=== PATIENT | female | born 1985 | race Caucasian/White ===

== ENCOUNTER 2017-10-22 17:02 | Emergency (ER) | payer SELFPAY ==
[2017-10-22] MEDS: ALPRAZolam 0.5 MG TABLET PO (17:37)
[2017-10-22] MEDS ORDERED: ALPRAZolam 1 MG TABLET PO (17:45)
[2017-10-22 17:58] LABS: URINE HCG POC HCG NEGATIVE (Negative)
== END 2017-10-22 18:53 | disposition home or self-care (01) ==
LOC: ER 18:53
DX: F41.9 Anxiety disorder, unspecified (principal); R07.89 Other chest pain
CPT/HCPCS: 71045; 81025; 93005; 99284

== ENCOUNTER → 2018-12-08 | Outpatient (CLI) | payer MEDICAID ==
[2017-10-22 17:05] VITALS: BP 133/83
[~2018-12-08] MED LIST: ALPR0.5T PO; FLUO20CA16 PO; FLUT9.9S NS; L.AC1CAP6 PO; LEVO112T4 PO
--- NOTE | 2018-12-08 13:49 | EKG ---
[facility] [address] [place] [address] Test Date: 2018-12-08 Test Time: 13:53:33 Pat Name: EMELI ESPITIA Department: Room: Gender: F Package Liner: : 1985 Requested By: KARLA BRAR Order Number: [id number] Reading MD: Emil Humphreys MD Measurements Intervals [place] Rate: 52 P: 0 KS: 134 QRS: 66 QRSD: 86 T: 49 QT: 400 QTc: 374 Interpretive Statements SINUS RHYTHM Electronically Signed On 12-08-2018 16:22:53 CDT by Emil Humphreys MD
[2018-12-08 13:57] LABS: BASO # 0.1 x10^3/uL (0.0-0.2); BASO % 1 % (0-3); EOS # 0.2 x10^3/uL (0.0-0.7); EOS % 2 % (0-3); HEMATOCRIT 41.8 % (36.0-47.0); HEMOGLOBIN 14.6 g/dL (12.0-15.5); LYMPH % 20 % (24-48); MEAN CORPUSCULAR HEMOGLOBIN 32 pg (25-35); MEAN CORPUSCULAR HGB CONC 35 g/dL (31-37); MEAN CORPUSCULAR VOLUME 93 fL (79-100); MONO # 0.7 x10^3/uL (0.0-1.1); MONO % 7 % (0-9); NEUT # 6.9 x10^3/uL (1.8-7.7); NEUT % 70 % (31-73); PLATELET COUNT 210 x10^3/uL (140-400); RED BLOOD COUNT 4.51 x10^6/uL (3.50-5.40); RED CELL DISTRIBUTION WIDTH 12.8 % (11.5-14.5); WHITE BLOOD COUNT 9.8 x10^3/uL (4.0-11.0)
[2018-12-08 14:12] LABS: BILIRUBIN,URINE NEGATIVE (NEG); CLARITY,URINE CLEAR; COLOR,URINE YELLOW; NITRITE,URINE NEGATIVE (NEG); PROTEIN,URINE NEGATIVE (NEG-TRACE); UROBILINOGEN,URINE 0.2 mg/dL (0.2 mg/dL)
[2018-12-08 14:20] LABS: ALBUMIN 3.4 g/dL (3.4-5.0); CREATININE 0.8 mg/dL (0.6-1.0); GFR 83.7; POTASSIUM 4.4 mmol/L (3.5-5.1); TOTAL BILIRUBIN 0.6 mg/dL (0.2-1.0); TOTAL PROTEIN 6.9 g/dL (6.4-8.2)
--- NOTE | 2018-12-08 14:22 | RAD ---
PROCEDURE: CHEST PA LATERAL CLINICAL INDICATION: Preop chest x-ray for hysterectomy. COMPARISON: None FINDINGS: No pneumothorax identified. Cardiac and mediastinal contours unremarkable. No pulmonary consolidation or acute airspace disease. No acute osseous abnormalities identified. IMPRESSION: No pulmonary consolidation or acute airspace disease. Electronically signed by: Felix Chanel DO (12/08/2018 2:19 PM) [facility]
[2018-12-08 14:24] LABS: BACTERIA,URINE 0 /HPF (0-FEW); RBC,URINE OCC /HPF (0-2); SQUAMOUS EPITHELIAL CELL,UR FEW /LPF; WBC,URINE OCC /HPF (0-4)
== END | disposition home or self-care (01) ==
LOC: SURGPAT 12:40
PROVIDERS: ATTEND Obstetrics & Gynecology
DX: Z01.818 Encounter for other preprocedural examination (principal); I26.99 Other pulmonary embolism without acute cor pulmonale; E03.9 Hypothyroidism, unspecified; R10.2 Pelvic and perineal pain; Z90.710 Acquired absence of both cervix and uterus
CPT/HCPCS: 36415; 71046; 80053; 81001; 85025; 93005

== ENCOUNTER 2018-12-21 06:32 | Observation (INO) | payer MEDICAID ==
[~2018-12-21] VITALS: Ht 160 cm; Wt 87.0 kg
[2018-12-21] VITALS (9 sets, daily range): BP systolic 81–132; BP diastolic 39–95
[~2018-12-21 06:32] MED LIST changes: +BUPIVACAINE-EPI 0.25%-1:200000 MPF 30 ML VIAL. INJ ONE
[2018-12-21] MEDS ORDERED: ONDANSETRON PF 4 MG/2 ML VIAL. IV PRN ×2 (07:00→11:45)
[2018-12-21] MEDS ORDERED: PROCHLORPERAZINE 10 MG/2 ML VIAL. IV PRN (07:00)
[2018-12-21] MEDS ORDERED: LIDOCAINE 1% PF 2 ML VIAL. ID PRN (07:00)
[2018-12-21] MEDS ORDERED: HYDROmorphone 2 MG/ML VIAL IV PRN (07:00)
[2018-12-21] MEDS ORDERED: ENOXAPARIN 40 MG/0.4 ML SYRINGE. SQ ONE (07:00)
[2018-12-21] MEDS ORDERED: IV RINGERS,LACTATED 1000ML 1,000 ML IV SCH (07:00)
[2018-12-21] MEDS ORDERED: fentaNYL PF VIAL 100 MCG/2 ML VIAL IV PRN ×2 (07:00)
[2018-12-21] MEDS ORDERED: ROCURONIUM 50 MG/5 ML VIAL. ONE (07:12)
[2018-12-21] MEDS ORDERED: DEXAMETHASONE SOD PHOS 4 MG/ML VIAL ONE (07:12)
[2018-12-21] MEDS ORDERED: FAMOTIDINE 20 MG/2 ML VIAL ONE (07:12)
[2018-12-21] MEDS ORDERED: LIDOCAINE 2% PF 5 ML VIAL. ONE (07:12)
[2018-12-21] MEDS ORDERED: PROPOFOL 20 ML IV ONE (07:12)
[2018-12-21] MEDS ORDERED: ONDANSETRON PF 4 MG/2 ML VIAL. ONE ×2 (07:12→11:42)
[2018-12-21] MEDS ORDERED: MIDAZOLAM HCL/PF 2 MG/2 ML VIAL. ONE (07:12)
[2018-12-21] MEDS ORDERED: fentaNYL PF VIAL 100 MCG/2 ML VIAL ONE ×4 (07:12→11:47)
[2018-12-21] MEDS ORDERED: KETOROLAC 30 MG/ML INJ FOR OR. INJ ONE (07:15)
[2018-12-21] MEDS ORDERED: ESTROGENS, CONJ VAGINAL CREAM 30GM TUBE. ONE (07:55)
[2018-12-21] MEDS ORDERED: INDIGOTINDISULFONATE SODIUM 40 MG/5 ML AMPUL. ONE (07:56)
[2018-12-21] MEDS ORDERED: FLUoxetine HCL 20 MG CAPSULE PO SCH (08:00)
[2018-12-21] MEDS ORDERED: ePHEDrine PF IN SALINE 50 MG/10 ML SYRINGE. IV ONE (08:21)
[2018-12-21] MEDS ORDERED: GLYCOPYRROLATE 1 MG/5 ML VIAL. ONE (08:22)
[2018-12-21] MEDS ORDERED: LEVOTHYROXINE 112 MCG TABLET PO SCH (09:00)
[2018-12-21] MEDS ORDERED: FLUTICASONE 50MCG/NASAL SPRAY 16GM BOTTLE. NS SCH (09:00)
[2018-12-21] MEDS ORDERED: VECURONIUM BOLUS 10 MG VIAL. IV ONE (09:27)
[2018-12-21] MEDS ORDERED: 0.9 % SODIUM CHLORIDE 20 ML VIAL. IJ ONE (09:28)
[2018-12-21] MEDS ORDERED: NEOSTIGMINE METHYLSULFATE 5 MG/5 ML SYRINGE. ONE (09:58)
[2018-12-21] MEDS ORDERED: SEVOFLURANE > 120 MINUTES. IH ONE (09:58)
[2018-12-21] MEDS ORDERED: ceFAZolin 2GM PREMIX 2 GM/50 ML BAG IV ONE (10:00)
[2018-12-21] MEDS ORDERED: ZOLPIDEM 5 MG TABLET. PO PRN (11:45)
[2018-12-21] MEDS ORDERED: MORPHINE SULFATE 2 MG/ML VIAL. IV PRN (11:45)
[2018-12-21] MEDS ORDERED: NALOXONE 0.4 MG/ML VIAL. IV PRN (11:45)
[2018-12-21] MEDS ORDERED: CALCIUM CARBONATE 500 MG TAB.CHEW PO PRN (11:45)
[2018-12-21] MEDS ORDERED: diphenhydrAMINE 50 MG/ML VIAL IV PRN (11:45)
[2018-12-21] MEDS ORDERED: diphenhydrAMINE HCL 25 MG CAPSULE PO PRN (11:45)
[2018-12-21] MEDS ORDERED: LACTULOSE 20 GM/30 ML SOLUTION. PO PRN (11:45)
[2018-12-21] MEDS ORDERED: HYDROcodone/APAP 5/325MG 1 TAB TABLET PO PRN (11:45)
[2018-12-21] MEDS ORDERED: MAGNESIUM HYDROXIDE 2,400 MG/30 ML ORAL.SUSP. PO PRN (11:45)
[2018-12-21] MEDS ORDERED: 0.9 % SODIUM CHLORIDE 10 ML DISP.SYRIN. IV PRN (11:45)
[2018-12-21] MEDS ORDERED: PROCHLORPERAZINE 10 MG/2 ML VIAL. ONE (11:47)
--- NOTE | 2018-12-21 12:03 | PDOC ---
BRIEF OPERATIVE NOTE Date: Dec 21, 2018 Pre-Op Diagnosis pelvic pain, menorrhagia, irregular menses Post-Op Diagnosis same plus pelvic adhesive disease with uterus (whole uterus and bladder) stuck to anterior abdominal wall Procedure Performed LAVH/RSO/left salpingectomy/lysis of adhesions Surgeon Dr. Gypsy Martinez Jelly Filter Tender HENRIETTA Pizarro Anesthesiologist Dr. Mackenzie Anesthesia Type: General Blood Loss 150cc IV Fluid 2500cc Urine Output 650cc clear via thomas Specimens Obtained cervix, uterus, right tube and ovary, left tube (detached) Findings small uterus, normal bilateral tubes and ovaries, omentum and entire anterior uterus with bladder adhesed to anterior abdominal wall Complications none Operative Note [id number] GYPSY MARTINEZ MD Dec 21, 2018 12:03
[2018-12-21] MEDS ORDERED: MORPHINE SULFATE 2 MG/ML VIAL. ONE ×2 (12:17→12:38)
[2018-12-21] MEDS: MORPHINE SULFATE 2 MG/ML VIAL. IV PRN ×4 (12:20→12:57)
--- NOTE | 2018-12-21 13:38 | OP ---
DATE OF SURGERY: 12/21/2018 PREOPERATIVE DIAGNOSES: Irregular menses, menorrhagia, pelvic pain. 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 PROCEDURE: Laparoscopic-assisted vaginal hysterectomy, right salpingo-oophorectomy, left salpingectomy, and lysis of adhesions. SURGEON: Karla Martinez MD CHAINSTITCH SEWING MACHINE OPERATOR: HENRIETTA Dodd ANESTHESIOLOGIST: Sonu Mackenzie MD ANESTHESIA: General. ESTIMATED BLOOD LOSS: 150 mL. URINE OUTPUT: 650 mL clear via Davis catheter. INTRAVENOUS FLUIDS: 2500 mL of Crystalloid. SPECIMENS: Cervix, uterus, right tube and ovary and a left detached tube. FINDINGS: She did have a small uterus with normal tubes and ovaries, but her uterus was adhesed to the anterior abdominal wall with omental adhesions in front of it, from the fundus all the way down was adhesed with bladder adhesions to the uterus, uterus to the anterior abdominal wall. COMPLICATIONS: None, but I will say at least over 2-2-1/2 hours of adhesions were done carefully to take this uterus off the anterior abdominal wall before I could actually complete the hysterectomy. DESCRIPTION OF PROCEDURE: This patient was taken to the operating room where general anesthesia was placed. The patient was placed in a dorsal lithotomy position in [facility]. The patient's abdomen and vagina were both prepped and draped in the normal sterile fashion and a Davis catheter had been inserted under sterile technique. Upon my arrival, a timeout was performed. Once everyone agreed and she had received her preoperative antibiotics, a weighted speculum was placed in the patient's vagina. A single-tooth tenaculum was used to grasp her cervix. It was a very small nulliparous appearing cervix from her 3 prior cesareans. Marcaine 10 mL of 0.25% with epinephrine were used to circumferentially inject around the cervix for both hemodissection and hemostatic purposes later. The Cimetrix uterine manipulator was placed through the endocervical os, locked on the single tooth tenaculum and the bivalve speculum was then weighted. Top gloves were discarded and changed. Attention was then turned to the abdomen. It did feel like her uterus with the manipulator in could be moved half way up the abdominal wall or was located higher than what the sonogram showed a 7-8 cm uterus, so it appeared to be bigger, so I went above the umbilicus, I made a supraumbilical skin incision with the scalpel, carried down through the subcuticular layer to the fascia with curved Lucy. The 5 mm Visiport was used directly into the abdominal cavity. Opening patient pressure was 4 mmHg. Carbon dioxide gas was used to then appropriately insufflate the abdominal cavity to maintain a pressure of 15 mmHg. The patient was then placed in Trendelenburg position where omental adhesions could be seen right away, but I could not see around them, so I did place a right and left lower quadrant ports under direct visualization. Laterally it was clear, so finding an area clear of any vasculature after transilluminating the abdominal wall, making a small incision and placing the 5 mm atraumatic disposable trocar in under direct visualization, then using 4-5 mL of air to insufflate that cuff. I moved the camera over to one of the lateral ports, looked at the midline port, it was clear and inflated that cuff as well. At this point, once we got in there, we could see that the uterus was indeed small, but the reason it felt higher is it was adhesed all the way up the anterior abdominal wall with omental adhesions in front of it, so I put the LigaSure in and took down all the omental adhesions. The uterine adhesion at the front was very thick. I was actually able to look at the tubes and ovaries on both sides which were normal and start with the right tube and ovary. The patient wanted the right side out, so I elevated the right tube and ovary, found the ureter coursing low in the pelvis and I was able to stay high on the infundibulopelvic ligament on the right side, cauterizing and cutting and taking this down. I was able to pull down from that anterior adhesion of the uterus off the abdominal wall and find the round ligament and cauterized it as well, trying to get blood supply to the uterus. At this point, the left tube and ovary were normal. I went above the ovary and below the tube on this side doing a salpingectomy and crossing the left uterine ovarian pedicle, leaving the ovary per patient request on this side and again cauterizing the left round ligament. On the left side, I was actually able to peel down and somewhat get that bladder down on the side and even start to get my uterines on the left side even though there were adhesions in the middle. So, I went on the right side and worked and did the same thing. I was able to kind of start low and I was able to actually peel down the bladder. It was fatty and filmy, but I was able to peel it down and separate it from that thick anterior fundal adhesion and get the bladder down and get the uterines on the right side as well. This allowed me to use the monopolar hook on that thick adhesion on the fundal area and release it and then I was able to put a single tooth tenaculum down the other port, pull it down and manipulate the uterus better to take down the adhesions under direct visualization. Some were done bluntly just using the [place] to roll up and kind of come in from the sides and others were done sharply with the monopolar tip where I could see and kind of score that bladder and peel it down on the sides and get it down in the front and then come around that thick anterior abdominal wall to the uterus adhesion with the monopolar hook once I knew the bladder was down around it. It took over 2 hours to get the uterus and bladder released and get the bladder down. Once it was down, I was able to then easily get my uterines, cross contralaterally on either side, going down the uterus through the cardinal and broad ligaments, to the uterosacrals bilaterally and there was nothing posteriorly, no adhesions posteriorly and again, like I said, the ovaries were good. The left tube did detach during this, it was easily removed and passed off. That is why it was detached, but everything else was good and there was no active bleeding. Most of the surgery was spent on adhesiolysis. Once everything was down and the bladder was down, and we got down low on both sides to the uterosacrals on both sides and it was completely free and blanched, all instruments were removed from the abdomen and attention was turned vaginally. The single tooth and Valtchevs were removed. A weighted speculum was placed in the patient's vagina. Thyroid Tigre clamps were placed on the anterior and posterior lips of the cervix respectively. A scalpel was used to make a circumferential incision in the cervix. An open Ray-Mya 4 x 4 was used to gently push up the anterior bladder peritoneum. The posterior cul-de-sac was sharply entered with curved Espinoza scissors and a #0 Vicryl stitch was used to secure the posterior peritoneum to the vaginal cuff. It was tagged with a curved Lucy clamp and the needle was cut and passed off. The short weighted vaginal speculum was removed and replaced with the long weighted Georges speculum in the posterior cul-de-sac. Once the bladder was up on both sides and I made sure it was, curved Анна clamps x 2 were placed on the patient's left uterosacral ligament where they were doubly clamped with curved Heaneys, cut with Espinoza scissors and suture ligated x 2 with 0 Vicryl. There was a sliver of a pedicle left on this side that the right angle got around and the vaginal LigaSure cauterized and cut it easily, so the left side was free. At this point, the right side, curved Heaneys were placed on the right uterosacral ligament where they were doubly clamped with curved Heaneys, cut with curved Espinoza scissors and suture ligated x 2 with 0 Vicryl. Second one was taken through the vaginal cuff securing uterosacral ligament to the vaginal cuff, tagging it with a straight Lucy clamp. The remaining pedicle, it was larger on this side, but it was easily delineated and the vaginal LigaSure was used to cauterize and cut the remaining pedicle on the right side as well. There was still an anterior adhesion that I could get from the fundus down and peel it off with my finger at this point. Where there was some fatty and still a small adhesion to the anterior low abdominal wall near the bladder area and I did not do that, laparoscopically I got 90% of the adhesions, but this last one remained, but I could easily get to it now, kind of turning the uterus inside out, inverting it and peeling that last adhesion off bluntly with my fingers. Once this was done, the cervix, uterus, right tube and ovary were delivered in total and again the left one had been detached during the manipulation earlier with the salpingectomy and it was passed off, but it was removed as well. So, the patient kept her left ovary. At this point, I could not find the anterior bladder mucosa with all that scarring, so I just used the sponge stick to examine the pedicles. There was some slight bleeding from the left uterosacral ligament. I was able to pull it out with a Malawian's and cauterize behind it with the vaginal LigaSure easily under direct visualization. Sponge stick was used to examine the pedicles, they appeared dry. So, the anterior Ray-Mya was taken out of the cul-de-sac. The short weighted speculum was replaced. The long Georges speculum was removed and replaced with a short weighted vaginal speculum. A 2-0 Vicryl was taken just under the cuff as I could not find the anterior bladder mucosa, the left uterosacral ligament, posterior peritoneum and right uterosacral ligament, thus closing the peritoneum in a pursestring like fashion. The right uterosacral tag was clipped. All that was left was that posterior cuff tag and the vaginal cuff was closed with a full length 2-0 Vicryl in an anterior to posterior running locked fashion with a full length 2-0 Vicryl. A few imbricating stitches were placed as well with excellent results. The cuff was hemostatic. All gloves were discarded and changed and a second look was now taken from above. After changing all gloves and going back above and reinsufflating, placing her back in Trendelenburg position, copious irrigation initially revealed hemostasis; however, I saw a tiny bit of spotting over at the right IP area, so I pulled it out and cauterized it. It looked great. However, the LigaSure kept sticking to it and everytime I pulled it off, it would rebleed, so I cauterized it, sprayed it with the suction dependency director, got it off and then initially we tried to use Tisseel; however, it did not squirt right, it did come out at all, so we just abandoned that and got Ewa and sprayed it with excellent results and we watched it several times. I sprayed the anterior abdominal wall, the bladder area, the vaginal cuff, looked back over at the right side, deflated some of the gas and the air and it stayed dry. The right and left pericolic gutters were clear. The right upper quadrant looked good. She did have bowel adhesions on both sides, right and left-sided that I did not touch at all; they were above the level of the pelvis. There was some evidence of scarring, but again I left those and did not touch those. The syringe was used to deflate all 3 of the trocar, 4-5 mL of air in the trocar cuff. As hemostasis was assured and I watched the Ewa stay white and powdery and nothing was draining and the cul-de-sac was dry again, after deflating the air and watching it for several minutes, the right and left lower quadrant ports were removed under direct visualization. These too were hemostatic. Gas was released from that umbilical port and then it was pulled out as well. All three port sites were closed with 4-0 nylon and the patient is being awakened from anesthesia right now. She was awakened and brought to the recovery room in stable condition. KARLA MARTINEZ MD DR: COURTNEY/larissa JOB#: [id number] / [id number]
[2018-12-21] MEDS ORDERED: TIMOLOL 0.5% OPHTH SOLUTION 5ML BOTTLE. OS SCH (15:15)
--- NOTE | 2018-12-21 16:16 | NUR ---
1330 eye discomfort upon assessment patient c/o of eye hurting, states that it feels like something is in it. Eye was looked at multiple times by RN nothing was noted in eye. around 1430 Anesthesia was notified, orders received. Anesthesia up to unit to see patient. Patient and mother of patient was notified of possible corneal abrasion.
[2018-12-21] MEDS: SIMETHICONE 80 MG TAB.CHEW PO PRN ×2 (17:59→22:08)
[2018-12-21] MEDS: oxyCODONE/APAP 5/325 1 TAB TABLET PO PRN ×3 (18:01→23:06)
[2018-12-21] MEDS ORDERED: TIMOLOL 0.5% OPHTH SOLUTION 5ML BOTTLE. OS PRN (18:15)
[2018-12-21] MEDS ORDERED: POLYVINYL ALCOHOL 1.4% OPHTH SOLUTION 15ML BOTTLE. OU PRN (20:00)
--- NOTE | 2018-12-21 21:20 | NUR ---
Dr. Martinez called and notified of saturated dressing from L abd incision. Orders received for stat CBC and to return call with results. 2150- Pt. up to the bathroom and pulled call light. This nurse and charge nurse to room. Pt. stated her dressing was saturated again with serosanguineous fluid. Charge nurse helped pt. to bed and redressed incision. This nurse called Dr. Martinez and notified her of saturated dressing and H&H results. Dr. Martinez stated that she would see pt. first thing in the morning and to redress as needed as long as pt. stable.
[2018-12-21 21:38] LABS: BASO # 0.1 x10^3/uL (0.0-0.2); BASO % 1 % (0-3); EOS % 0 % (0-3); HEMATOCRIT 37.9 % (36.0-47.0); HEMOGLOBIN 12.9 g/dL (12.0-15.5); LYMPH # 1.1 x10^3/uL (1.0-4.8); LYMPH % 8 % (24-48); MEAN CORPUSCULAR HEMOGLOBIN 32 pg (25-35); MEAN CORPUSCULAR HGB CONC 34 g/dL (31-37); MEAN CORPUSCULAR VOLUME 93 fL (79-100); MONO # 0.7 x10^3/uL (0.0-1.1); MONO % 5 % (0-9); NEUT % 86 % (31-73); PLATELET COUNT 222 x10^3/uL (140-400); RED BLOOD COUNT 4.06 x10^6/uL (3.50-5.40); RED CELL DISTRIBUTION WIDTH 12.8 % (11.5-14.5); WHITE BLOOD COUNT 12.8 x10^3/uL (4.0-11.0)
[2018-12-21 21:57] LABS: % BANDS 3 % (0-9); % BASOS 1 % (0-3); % LYMPHS 14 % (24-48); % MONOS 2 % (0-10); % SEGS 80 % (35-66); PLT ESTIMATE ADEQUATE (ADEQUATE); TOXIC GRANULATION SLIGHT
[2018-12-22 01:30] VITALS: BP 128/77
[2018-12-22] MEDS: oxyCODONE/APAP 5/325 1 TAB TABLET PO PRN ×4 (03:23→17:22)
[2018-12-22 05:10] VITALS: BP 107/61
[2018-12-22] MEDS ORDERED: LIDOCAINE 1% Multi-Dose 20 ML VIAL. INJ ONE (07:30)
--- NOTE | 2018-12-22 07:49 | PDOC ---
SURGICAL PROGRESS NOTE Subjective Doing well. Had some serosanguous drainage from Left lower quadrant port yesterday. Much better this morning. No n/v, tolerating PO, ambulating well and voiding without catheter. Has already had a loose stool also today. No vag bleeding at all Vital Signs Vital Signs Date Time Temp Pulse Resp B/P (MAP) Pulse Ox O2 Delivery O2 Flow Rate FiO2 12/22/18 05:10 99.1 71 16 107/61 (76) 97 Room Air 99.1 I&O Intake and Output 12/22/18 06:59 Intake Total 3850 ml Output Total 800 ml Balance 3050 ml Intake Oral 500 ml IV Total 3350 ml Output Urine Total 650 ml Estimated Blood Loss 150 ml # Voids 3 PATIENT HAS A ALEXANDRE: No General: Alert, Oriented X3, Cooperative, No acute distress HEENT: Atraumatic Heart: Regular rate Abdomen: Soft, No tenderness (mild discomfort with gas only), Other (edge of umbilical and Left port site with oozing if i press and squeeze; used a total of 4cc of 1% lidocaine to numb it and placed one 4-0 nylon suture at edge on both of them at the bedside with excellent results (but bandage was dry this am when I removed it but was changed a few times yesterday by the nurses)) Extremities: No clubbing, No cyanosis, No edema, No tenderness/swelling Skin: No rashes Neuro: Normal gait, Normal speech Psych/Mental Status: Mental status NL, Mood NL Labs Laboratory Tests Test 12/21/18 06:48 12/21/18 21:21 Bedside Urine HCG, Qualitative Hcg negative (Negative) White Blood Count 12.8 x10^3/uL (4.0-11.0) Red Blood Count 4.06 x10^6/uL (3.50-5.40) Hemoglobin 12.9 g/dL (12.0-15.5) Hematocrit 37.9 % (36.0-47.0) Mean Corpuscular Volume 93 fL (79-100) Mean Corpuscular Hemoglobin 32 pg (25-35) Mean Corpuscular Hemoglobin Concent 34 g/dL (31-37) Red Cell Distribution Width 12.8 % (11.5-14.5) Platelet Count 222 x10^3/uL (140-400) Neutrophils (%) (Auto) 86 % (31-73) Lymphocytes (%) (Auto) 8 % (24-48) Monocytes (%) (Auto) 5 % (0-9) Eosinophils (%) (Auto) 0 % (0-3) Basophils (%) (Auto) 1 % (0-3) Neutrophils # (Auto) 11.0 x10^3/uL (1.8-7.7) Lymphocytes # (Auto) 1.1 x10^3/uL (1.0-4.8) Monocytes # (Auto) 0.7 x10^3/uL (0.0-1.1) Eosinophils # (Auto) 0.0 x10^3/uL (0.0-0.7) Basophils # (Auto) 0.1 x10^3/uL (0.0-0.2) Segmented Neutrophils % 80 % (35-66) Band Neutrophils % 3 % (0-9) Lymphocytes % 14 % (24-48) Monocytes % 2 % (0-10) Basophils % 1 % (0-3) Toxic Granulation Slight Platelet Estimate Adequate (ADEQUATE) Laboratory Tests Test 12/21/18 21:21 White Blood Count 12.8 x10^3/uL (4.0-11.0) Red Blood Count 4.06 x10^6/uL (3.50-5.40) Hemoglobin 12.9 g/dL (12.0-15.5) Hematocrit 37.9 % (36.0-47.0) Mean Corpuscular Volume 93 fL (79-100) Mean Corpuscular Hemoglobin 32 pg (25-35) Mean Corpuscular Hemoglobin Concent 34 g/dL (31-37) Red Cell Distribution Width 12.8 % (11.5-14.5) Platelet Count 222 x10^3/uL (140-400) Neutrophils (%) (Auto) 86 % (31-73) Lymphocytes (%) (Auto) 8 % (24-48) Monocytes (%) (Auto) 5 % (0-9) Eosinophils (%) (Auto) 0 % (0-3) Basophils (%) (Auto) 1 % (0-3) Neutrophils # (Auto) 11.0 x10^3/uL (1.8-7.7) Lymphocytes # (Auto) 1.1 x10^3/uL (1.0-4.8) Monocytes # (Auto) 0.7 x10^3/uL (0.0-1.1) Eosinophils # (Auto) 0.0 x10^3/uL (0.0-0.7) Basophils # (Auto) 0.1 x10^3/uL (0.0-0.2) Segmented Neutrophils % 80 % (35-66) Band Neutrophils % 3 % (0-9) Lymphocytes % 14 % (24-48) Monocytes % 2 % (0-10) Basophils % 1 % (0-3) Toxic Granulation Slight Platelet Estimate Adequate (ADEQUATE) I have reviewed the following labs, vitals, nursing Cardiovascular: No pertinent hx Pulmonary: Asthma GI: No pertinent hx Heme/Onc: Anemia NOS Assessment/Plan POD#1 s/p LAVH/RSO/left salpingectomy/adhesiolysis Routine PO care d/c to home later today if am bloodwork is ok (not even drawn yet at 0745am had nurses call lab) NPV x 6 weeks no driving on narcotic pain meds or for 1-2 weeks keep f/u with me in office in one week pt has narcotic pain med filled at home ok for OTC ibuprofen as needed also call or return sooner for any other questions or concerns not limited to but including pain unrelieved with pain meds, increased or unexplained vaginal bleeding or T>100.4 KARLA BRAR MD Dec 22, 2018 07:49
[2018-12-22] MEDS: SIMETHICONE 80 MG TAB.CHEW PO PRN (07:54)
--- NOTE | 2018-12-22 07:54 | PDOC3 ---
Discharge Summary Visit Information Date of Admission: Dec 21, 2018 Date of Discharge: Dec 22, 2018 Final Diagnosis pelvic pain with pelvic adhesive disease Brief Hospital Course Allergies Allergies Coded Allergies Type Severity Reaction Last Updated Verified No Known Drug Allergies 12/21/18 No Vital Signs Vital Signs Date Time Temp Pulse Resp B/P (MAP) Pulse Ox O2 Delivery O2 Flow Rate FiO2 12/22/18 05:10 99.1 71 16 107/61 (76) 97 Room Air 99.1 Lab Results Laboratory Tests Test 12/21/18 06:48 12/21/18 21:21 Bedside Urine HCG, Qualitative Hcg negative (Negative) White Blood Count 12.8 x10^3/uL (4.0-11.0) Red Blood Count 4.06 x10^6/uL (3.50-5.40) Hemoglobin 12.9 g/dL (12.0-15.5) Hematocrit 37.9 % (36.0-47.0) Mean Corpuscular Volume 93 fL (79-100) Mean Corpuscular Hemoglobin 32 pg (25-35) Mean Corpuscular Hemoglobin Concent 34 g/dL (31-37) Red Cell Distribution Width 12.8 % (11.5-14.5) Platelet Count 222 x10^3/uL (140-400) Neutrophils (%) (Auto) 86 % (31-73) Lymphocytes (%) (Auto) 8 % (24-48) Monocytes (%) (Auto) 5 % (0-9) Eosinophils (%) (Auto) 0 % (0-3) Basophils (%) (Auto) 1 % (0-3) Neutrophils # (Auto) 11.0 x10^3/uL (1.8-7.7) Lymphocytes # (Auto) 1.1 x10^3/uL (1.0-4.8) Monocytes # (Auto) 0.7 x10^3/uL (0.0-1.1) Eosinophils # (Auto) 0.0 x10^3/uL (0.0-0.7) Basophils # (Auto) 0.1 x10^3/uL (0.0-0.2) Segmented Neutrophils % 80 % (35-66) Band Neutrophils % 3 % (0-9) Lymphocytes % 14 % (24-48) Monocytes % 2 % (0-10) Basophils % 1 % (0-3) Toxic Granulation Slight Platelet Estimate Adequate (ADEQUATE) Laboratory Tests Test 12/21/18 21:21 White Blood Count 12.8 x10^3/uL (4.0-11.0) Red Blood Count 4.06 x10^6/uL (3.50-5.40) Hemoglobin 12.9 g/dL (12.0-15.5) Hematocrit 37.9 % (36.0-47.0) Mean Corpuscular Volume 93 fL (79-100) Mean Corpuscular Hemoglobin 32 pg (25-35) Mean Corpuscular Hemoglobin Concent 34 g/dL (31-37) Red Cell Distribution Width 12.8 % (11.5-14.5) Platelet Count 222 x10^3/uL (140-400) Neutrophils (%) (Auto) 86 % (31-73) Lymphocytes (%) (Auto) 8 % (24-48) Monocytes (%) (Auto) 5 % (0-9) Eosinophils (%) (Auto) 0 % (0-3) Basophils (%) (Auto) 1 % (0-3) Neutrophils # (Auto) 11.0 x10^3/uL (1.8-7.7) Lymphocytes # (Auto) 1.1 x10^3/uL (1.0-4.8) Monocytes # (Auto) 0.7 x10^3/uL (0.0-1.1) Eosinophils # (Auto) 0.0 x10^3/uL (0.0-0.7) Basophils # (Auto) 0.1 x10^3/uL (0.0-0.2) Segmented Neutrophils % 80 % (35-66) Band Neutrophils % 3 % (0-9) Lymphocytes % 14 % (24-48) Monocytes % 2 % (0-10) Basophils % 1 % (0-3) Toxic Granulation Slight Platelet Estimate Adequate (ADEQUATE) Brief Hospital Course Ms. Velez is a 33 old female who presented with menorrhagia, pelvic pain and discovered pelvic adhesions with uterus to anterior abdominal wall. She underwent and LAVH/RSO/left salpingectomy/adhesiolysis yesterday without complications. She did well postoperatively except LLQ port had some drainage and was changed a few times, so I put a stitch in it at the bedside this am with lidocaine. Last pm her postoperative hgb was 12.9 and VSS. She is doing well this am and was almost gone with dry bandage, but wanted to make sure it was ok. She is voiding without catheter, toleating PO without n/v and already had a stool as well. She will be discharged to home as long as morning labs come back ok today. Discharge Information Condition at Discharge: Stable Follow Up: Weeks Disposition/Orders: D/C to Home Scheduled Fluoxetine Hcl (Prozac) 20 Mg Capsule, 1 CAP PO DAILYWBKFT for bipolar, #30 Ref 1 (Reported) Entered as Reported by: ED MYLES on 12/08/181311 Last Taken: Unknown Dose on 12/20/18 Last Action: Continued on 12/21/18732 by KARLA BRAR Fluticasone Propionate (Flonase Allergy Relief) 9.9 Ml [place].susp, 2 SPRAYS NS DAILY for allergies, (Reported) Entered as Reported by: ED MYLES on 12/08/181313 Last Taken: Unknown Dose on 12/20/18 Last Action: Converted on 12/21/18732 by KARLA BRAR LStacieacidoph & Paracasei,B.lactis (Probiotic) 1 Each Capsule, 1 EACH PO DAILY for supplement, (Reported) Entered as Reported by: ED MYLES on 12/08/181312 Last Taken: Unknown Dose on 12/20/18 Last Action: HELD on 12/21/18732 by KARLA BRAR Levothyroxine Sodium (Levothyroxine Sodium) 112 Mcg Tablet, 1 TAB PO DAILY for thyroid replacement, #30 Ref 5 (Reported) Entered as Reported by: ED MYLES on 12/08/181311 Last Taken: Unknown Dose on 12/20/18 Last Action: Continued on 12/21/18732 by KARLA BRAR Patient Instructions Patient Instructions POD#1 s/p LAVH/RSO/left salpingectomy/adhesiolysis Routine PO care d/c to home later today if am bloodwork is ok (not even drawn yet at 0745am had nurses call lab) NPV x 6 weeks no driving on narcotic pain meds or for 1-2 weeks keep f/u with me in office in one week pt has narcotic pain med filled at home ok for OTC ibuprofen as needed also call or return sooner for any other questions or concerns not limited to but including pain unrelieved with pain meds, increased or unexplained vaginal bl eeding or T>100.4 KARLA BRAR MD Dec 22, 2018 07:54
[2018-12-22 08:44] LABS: CALCIUM 8.4 mg/dL (8.5-10.1); CREATININE 0.8 mg/dL (0.6-1.0); GFR 83.7; POTASSIUM 3.4 mmol/L (3.5-5.1)
[2018-12-22] MEDS: MAG HYDROX/ALUMINUM HYD/SIMETH 30 ML ORAL.SUSP PO PRN ×2 (10:01→16:59)
[2018-12-22 11:00] VITALS: BP 109/83
--- NOTE | 2018-12-22 14:06 | PATHOLOGY ---
[facility] Accession Number: [id number] . 01 Material submitted: . uterus - UTERUS, CERVIX,AND BILATERAL FALLOPIAN TUBES AND RIGHT OVARY . 01 Clinical history: . Pelvic pain with irregular menses . 02 Diagnosis: Uterus with attached right fallopian tube and ovary and detached left fallopian tube, laparoscopic assisted vaginal hysterectomy with bilateral salpingectomy and right oophorectomy: - Mild chronic cervicitis with focal squamous metaplasia. - Proliferative endometrium. - Subserosal cystic [place] rests of right fallopian tube. - Left paratubal cyst. - Cystic follicles of right ovary, multiple. LB/12/22/2018 . 02 Comment: There is no atypia or evidence of malignancy. (JPM/db; 12/22/2018) . 02 Electronically signed: . Braden Linn MD, Pathologist NPI- [id number] . 01 Gross description: . The specimen is received in formalin labeled "Maureen Velez, uterus, cervix, bilateral fallopian tubes, right ovary". Received is a 62 g, 9.1 x 4.7 x 3.5 cm uterus with attached cervix, detached left fallopian tube weighing 2 g, and attached right ovary weighing 16 g. The uterine serosa is pink-tineo and smooth to moderately disrupted on the anterior aspect. The 0.3 cm cervical os is surrounded by pink-tineo, smooth to wrinkled ectocervical mucosa. The uterus is oriented using the peritoneal reflection and the anterior paracervical margin is inked black. The uterus is opened laterally to reveal a pink-tineo endocervical canal measuring 2.9 cm in length. The endometrial cavity is triangular measuring 5.2 cm in length by 1.8 cm in width. The endometrium is pale tineo, glistening to slightly hemorrhagic in appearance and measures 0.1 cm in thickness. Serial sectioning reveals a tineo-pink, trabeculated myometrium measuring up to 1.9 cm in thickness with no grossly distinct nodules or lesions. . The left fimbriated fallopian tube measures 5.7 cm in length by up to 0.5 cm in diameter. The serosal surface displays multiple paratubal cysts ranging in size from 0.2 to 0.4 cm filled with clear fluid. Sectioning through the fallopian tube reveals a pinpoint to patent lumen and the fallopian tube appears grossly unremarkable. . The right adnexa consists of a fimbriated fallopian tube measuring 5.4 cm in length by up to 0.5 cm in diameter attached to a 3.7 x 2.7 x 2.6 cm cystic ovary. Sectioning through the fallopian tube reveals a pinpoint to patent lumen and the fallopian tube appears grossly unremarkable. Sectioning through the ovary reveals multiple cystic structures ranging in size from 0.3 to 0.5 cm filled with blood-tinged fluid. The remaining cut surfaces display pale tineo, normal ovarian stroma. The specimen is submitted representatively as follows: . A1 12:00 cervix A2 6:00 cervix A3 anterior endomyometrium A4 posterior endomyometrium A5 left fallopian tube A6-A7 right adnexa. (CAA; 12/21/2018) QAC/QAC . 02 Pathologist provided ICD-10: N72, N87.9, N83.8, N83.201 . 02 CPT . 246410 Specimen Comment: A courtesy copy of this report has been sent to Specimen Comment: [phone]. Specimen Comment: Report sent to Performed at: 01 [facility] [address] [address], [place] [id number] MD Volodymyr Ramirez MD Phone: [phone] Performed at: 02 [facility] [address] [place] [id number] MD Braden Linn MD Phone: [phone]
[2018-12-22 15:03] VITALS: BP 117/66
--- NOTE | 2018-12-22 17:24 | NUR ---
Discharge Discharge instructions given to patient at this time, no questions or concerns noted. To follow up with Dr. Martinez, appointment made prior to surgery. Waiting for transportation, will continue to monitor.
== END 2018-12-22 18:55 | disposition home or self-care (01) ==
LOC: SURG 06:32 → 3 NORTH 12:29
PROVIDERS: ADMIT Obstetrics & Gynecology; ATTEND Obstetrics & Gynecology
PROC: 0UT0FZZ Resection of Right Ovary, Via Natural or Artificial Opening With Percutaneous Endoscopic Assistance (ICD-10-PCS; 2018-12-21)
PROC: 0UT9FZZ Resection of Uterus, Via Natural or Artificial Opening With Percutaneous Endoscopic Assistance (ICD-10-PCS; principal; 2018-12-21 07:30)
DX: N94.10 Unspecified dyspareunia (principal); F41.9 Anxiety disorder, unspecified; F32.9 Major depressive disorder, single episode, unspecified; N92.6 Irregular menstruation, unspecified; K66.0 Peritoneal adhesions (postprocedural) (postinfection); N73.6 Female pelvic peritoneal adhesions (postinfective); N85.6 Intrauterine synechiae; N92.0 Excessive and frequent menstruation with regular cycle; Z98.891 History of uterine scar from previous surgery; Z86.711 Personal history of pulmonary embolism; Z98.890 Other specified postprocedural states
CPT/HCPCS: 36415; 58552; 80048; 81025; 85007; 85014; 85025; 86850; 86900; 86901; 88307; A7015; G0378; G0379; J0171; J0696; J0780; J1100; J1650; J2001; J2250; J2270; J2405; J2704; J2710; J3010; J3490; J7030; J7120; J1885